=== PATIENT | female | born 1930 | race Two or more races ===

== ENCOUNTER 2016-04-28 11:01 | Inpatient (IN) | payer OTHER, MEDICAID ==
--- NOTE | 2016-04-28 15:18 | CPEKG ---
Heart Rate: 95 RR Interval: 632 QRSD Interval: 106 QT Interval: 388 QTC Interval: 488 QRS [place]: 13 T Wave [place]: 184 EKG Severity - ABNORMAL ECG - EKG Impression: ATRIAL FLUTTER, A-RATE 319 EKG Impression: LVH WITH SECONDARY REPOLARIZATION ABNORMALITY EKG Impression: BORDERLINE PROLONGED QT INTERVAL Electronically Signed By: Willie Baird 28-Apr-2016 17:41:20
[2016-04-28 15:26] LABS: % IMMATURE GRANULYOCYTES 0.2 % (0.0-1.1); ABSOLUTE IMMATURE GRANULOCYTES 0.01 10^3/uL (0.00-0.10); ADD DIFF? NO; ADD MORPH? NO; ADD SCAN? NO; ATYPICAL LYMPHOCYTE FLAG 10 (0-99); FRAGMENT RBC FLAG 0 (0-99); HEMATOCRIT 42.9 % (38.0-47.0); HEMOGLOBIN 14.7 g/dL (12.6-16.3); LEFT SHIFT FLG 0 (0-99); LIPEMIA HEMOLYSIS FLAG 90 (0-99); MEAN CELL HEMOGLOBIN 30.9 pg (27.9-34.1); MEAN CELL HEMOGLOBIN CONCENTR. 34.3 g/dL (32.4-36.7); MEAN CELL VOLUME 90.1 fL (81.5-99.8); MEAN PLATELET VOLUME 10.7 fL (8.7-11.7); PLATELET CLUMPS FLAG 0 (0-99); PLATELET COUNT 191 10^3/uL (150-400); RED BLOOD CELL COUNT 4.76 10^6/uL (4.18-5.33); RED CELL DISTRIBUTION WIDTH 12.5 % (11.5-15.2)
[2016-04-28 15:34] LABS: ANION GAP 10 mEq/L (8-16); CALCIUM 9.5 mg/dL (8.5-10.4); CARBON DIOXIDE 25 mEq/l (22-31); CHLORIDE 104 mEq/L (97-110); CREATININE 0.8 mg/dL (0.6-1.0); GLOMERULAR FILTRATION RATE > 60; GLUCOSE 122 mg/dL (70-100); POTASSIUM 4.4 mEq/L (3.5-5.2); SODIUM 139 mEq/L (134-144)
[2016-04-28 15:40] LABS: INR 1.28 (0.83-1.16)
[2016-04-28 15:41] LABS: APTT 29.2 SEC (23.0-38.0)
[2016-04-28] MEDS ORDERED: ACETAMINOPHEN 325 MG TAB PO PRN (16:05)
--- NOTE | 2016-04-28 16:10 | PDCARPN ---
Cardiology Progress Note Chief Complaint: palpitations Assessment/Plan: Assessment/Plan: The patient is a 85 y/o F with a history of PAF who presents today for Sotalol initiation. Her renal function is normal and therefore she will begin Sotalol 80mg BID. She will be monitored continuously on tele and with periodic EKG's. Continue Eliquis 2.5mg BID for anticoagulation. 04/28/16 16:07 Subjective: Pt is complaining of palpitations. Objective: Vital Signs (8 Hrs) Temp Pulse Resp BP Pulse Ox 04/28/16 14:20 36.6 C 95 15 154/100 H 93 Intake/Output (24 Hrs) 04/27/16 04/28/16 04/29/16 05:59 05:59 05:59 Other: Weight 56.88 kg Result Diagrams: 04/28/16 14:45 04/28/16 14:45 EKG: atrial flutter with variable rates - Physical Exam Constitutional: WDWN Cardiovascular: irregularly irregular Respiratory: clear to auscultate bilat, no crackles, no wheezes Skin: no edema ICD10 Worksheet Patient Problems: Problems Problem Status Diagnosed Atrial fibrillation Acute
[2016-04-28] MEDS: APIXABAN 2.5 MG TAB PO SCH (20:12)
[2016-04-28] MEDS: ATORVASTATIN CALCIUM 20 MG TAB PO SCH (20:12)
[2016-04-28] MEDS: SOTALOL HCL 80 MG TAB PO SCH (20:13)
[2016-04-28] MEDS ORDERED: DORZOLAMIDE/TIMOLOL 10 ML OPHT.BTL EACHEYE SCH (21:00)
[2016-04-28] MEDS: TIMOLOL 0.5% EACHEYE SCH (22:08)
[2016-04-28] MEDS: diphenhydrAMINE 25 MG CAP PO PRN (22:33)
[2016-04-29 05:11] LABS: INR 1.41 (0.83-1.16); PROTIME(PATIENT) 17.2 SEC (12.0-15.0)
[2016-04-29 05:14] LABS: ANION GAP 7 mEq/L (8-16); CARBON DIOXIDE 27 mEq/l (22-31); CHLORIDE 108 mEq/L (97-110); CREATININE 0.8 mg/dL (0.6-1.0); GLOMERULAR FILTRATION RATE > 60; GLUCOSE 84 mg/dL (70-100); POTASSIUM 4.6 mEq/L (3.5-5.2); SODIUM 142 mEq/L (134-144)
[2016-04-29] MEDS: LEVOTHYROXINE 100 MCG TAB PO SCH (05:31)
--- NOTE | 2016-04-29 08:13 | CPEKG ---
Heart Rate: 101 RR Interval: 594 QRSD Interval: 114 QT Interval: 396 QTC Interval: 514 QRS [place]: -1 T Wave [place]: 141 EKG Severity - ABNORMAL ECG - EKG Impression: Atrial tachycardia EKG Impression: NONSPECIFIC INTRAVENTRICULAR CONDUCTION DELAY EKG Impression: LVH WITH SECONDARY REPOLARIZATION ABNORMALITY Electronically Signed By: Alfred Barney 29-Apr-2016 11:19:39
--- NOTE | 2016-04-29 09:43 | CPEKG ---
Heart Rate: 81 RR Interval: 741 P-R Interval: 164 QRSD Interval: 110 QT Interval: 416 QTC Interval: 483 P [place]: 75 QRS [place]: 40 T Wave [place]: -72 EKG Severity - ABNORMAL ECG - EKG Impression: SINUS RHYTHM EKG Impression: LVH WITH IVCD AND SECONDARY REPOL ABNRM Electronically Signed By: Alfred Barney 29-Apr-2016 11:19:20
[2016-04-29] MEDS: LISINOPRIL 10 MG TAB PO SCH (10:22)
[2016-04-29] MEDS: SOTALOL HCL 80 MG TAB PO SCH ×2 (10:22→21:08)
[2016-04-29] MEDS: PRESERVISION AREDS 2 EYE VITAMIN 1 EACH PO SCH (10:22)
[2016-04-29] MEDS: ISOSORBIDE MONONITRATE 30 MG TAB.SR PO SCH (10:22)
[2016-04-29] MEDS: APIXABAN 2.5 MG TAB PO SCH ×2 (10:22→21:09)
[2016-04-29] MEDS: TIMOLOL 0.5% EACHEYE SCH ×2 (10:24→21:08)
--- NOTE | 2016-04-29 12:16 | PDCARPN ---
Cardiology Progress Note Chief Complaint: PAF Assessment/Plan: Assessment/Plan: The patient is a 85 y/o F with a history of PAF who presents today for Sotalol initiation. Her renal function is normal and therefore she will begin Sotalol 80mg BID. She will be monitored continuously on tele and with periodic EKG's. Continue Eliquis 2.5mg BID for anticoagulation. QTc is adequate at this time. Continue Sotalol. Anticipate d/c tomorrow afternoon. She converted to NSR with morning. 04/29/16 12:15 Subjective: Pt denies any palpitations. Objective: Vital Signs (8 Hrs) Temp Pulse Resp BP Pulse Ox 04/29/16 11:30 36.3 C 59 L 18 118/57 L 94 04/29/16 08:00 57 L 18 138/69 H 93 04/29/16 06:09 36.9 C 55 L 14 135/68 H 93 Intake/Output (24 Hrs) 04/28/16 04/29/16 04/30/16 05:59 05:59 05:59 Intake Total 600 Balance 600 Intake: Oral (ml) 600 Other: Weight 56.88 kg Intake Quantity Yes Sufficient Number of Voids Toilet 2 Result Diagrams: 04/28/16 14:45 04/29/16 04:40 EKG: NSR, [id number] - Physical Exam Constitutional: WDWN Cardiovascular: regular rate and rhythm, no rubs, no gallops Respiratory: clear to auscultate bilat, no crackles, no wheezes Skin: no edema Neurologic: AAOx3 ICD10 Worksheet Patient Problems: Problems Problem Status Diagnosed Atrial fibrillation Acute
--- NOTE | 2016-04-29 13:05 | CPEKG ---
Heart Rate: 55 RR Interval: 1091 P-R Interval: 152 QRSD Interval: 112 QT Interval: 512 QTC Interval: 490 P [place]: 67 QRS [place]: 10 T Wave [place]: 66 EKG Severity - ABNORMAL ECG - EKG Impression: SINUS RHYTHM EKG Impression: LVH WITH IVCD AND SECONDARY REPOL ABNRM Electronically Signed By: Willie Baird 29-Apr-2016 16:51:22
[2016-04-29] MEDS: ATORVASTATIN CALCIUM 20 MG TAB PO SCH (21:08)
[2016-04-29] MEDS: diphenhydrAMINE 25 MG CAP PO PRN (22:36)
--- NOTE | 2016-04-30 01:04 | CPEKG ---
Heart Rate: 53 RR Interval: 1132 P-R Interval: 128 QRSD Interval: 120 QT Interval: 528 QTC Interval: 496 P [place]: 33 QRS [place]: -2 T Wave [place]: 71 EKG Severity - ABNORMAL ECG - EKG Impression: SINUS RHYTHM EKG Impression: NONSPECIFIC INTRAVENTRICULAR CONDUCTION DELAY EKG Impression: LVH WITH SECONDARY REPOLARIZATION ABNORMALITY Electronically Signed By: Willie Baird 30-Apr-2016 17:01:51
[2016-04-30] MEDS: LEVOTHYROXINE 100 MCG TAB PO SCH (06:37)
[2016-04-30] MEDS: PRESERVISION AREDS 2 EYE VITAMIN 1 EACH PO SCH (09:47)
[2016-04-30] MEDS: ISOSORBIDE MONONITRATE 30 MG TAB.SR PO SCH (09:47)
[2016-04-30] MEDS: APIXABAN 2.5 MG TAB PO SCH ×2 (09:47→21:02)
[2016-04-30] MEDS: TIMOLOL 0.5% EACHEYE SCH ×2 (09:48→21:03)
[2016-04-30] MEDS: SOTALOL HCL 80 MG TAB PO SCH ×3 (10:08→21:02)
--- NOTE | 2016-04-30 10:15 | PDCARPN ---
Cardiology Progress Note Chief Complaint: Atrial fibrillation Assessment/Plan: Assessment/Plan: The patient is a 85 y/o F with a history of PAF who presents for Sotalol initiation. She was started on Sotalol 80mg BID but her QTc continued to slowly progress and is now 496. Her dose will be decreased to 40mg BID. Continue to monitor with routine EKG's and tele. Plan to d/c tomorrow after her morning dose. Continue Eliquis 2.5mg BID for anticoagulation. She is currently in NSR. She is hypertensive today but was well controlled yesterday. Continue to monitor. 04/30/16 10:16 Subjective: She denies any CP, SOB, or palpitations. She is concerned about her blood pressure increasing slowly. Objective: Vital Signs (8 Hrs) Temp Pulse Resp BP Pulse Ox 04/30/16 07:39 37.2 C 55 L 20 157/81 H 93 04/30/16 04:00 36.6 C 51 L 18 162/68 H 94 Intake/Output (24 Hrs) 04/29/16 04/30/16 05/01/16 05:59 05:59 05:59 Intake Total 600 1580 240 Output Total 2 Balance 600 1578 240 Intake: Oral (ml) 600 1580 240 Output: Urine (ml) 2 Toilet 2 Other: Weight 56.88 kg Intake Quantity Yes Yes Sufficient Number of Voids Toilet 2 2 Number of Stools Toilet 1 Result Diagrams: 04/28/16 14:45 04/29/16 04:40 EKG: QTc 496 Telemetry: NSR with SB - Physical Exam Constitutional: WDWN Cardiovascular: regular rate and rhythm, no murmurs, no rubs, no gallops Respiratory: clear to auscultate bilat, no crackles, no wheezes Skin: no edema Neurologic: AAOx3 ICD10 Worksheet Patient Problems: Problems Problem Status Diagnosed Atrial fibrillation Acute
[2016-04-30] MEDS: LISINOPRIL 10 MG TAB PO SCH (11:34)
--- NOTE | 2016-04-30 11:58 | CPEKG ---
Heart Rate: 56 RR Interval: 1071 P-R Interval: 132 QRSD Interval: 110 QT Interval: 504 QTC Interval: 487 P [place]: 36 QRS [place]: 4 T Wave [place]: 82 EKG Severity - ABNORMAL ECG - EKG Impression: SINUS RHYTHM EKG Impression: LVH WITH IVCD AND SECONDARY REPOL ABNRM Electronically Signed By: Willie Baird 30-Apr-2016 17:01:42
[2016-04-30] MEDS: ATORVASTATIN CALCIUM 20 MG TAB PO SCH (21:02)
--- NOTE | 2016-04-30 22:58 | CPEKG ---
Heart Rate: 57 RR Interval: 1053 P-R Interval: 132 QRSD Interval: 120 QT Interval: 516 QTC Interval: 503 P [place]: 55 QRS [place]: 9 T Wave [place]: 76 EKG Severity - ABNORMAL ECG - EKG Impression: SINUS RHYTHM EKG Impression: INCOMPLETE LEFT BUNDLE BRANCH BLOCK EKG Impression: PROBABLE LVH WITH SECONDARY REPOL ABNRM Electronically Signed By: Willie Baird 01-May-2016 17:40:18
[2016-05-01 07:58] VITALS: RESP 16
[2016-05-01] MEDS: ISOSORBIDE MONONITRATE 30 MG TAB.SR PO SCH (08:08)
[2016-05-01] MEDS: APIXABAN 2.5 MG TAB PO SCH (08:08)
[2016-05-01] MEDS: PRESERVISION AREDS 2 EYE VITAMIN 1 EACH PO SCH (08:08)
[2016-05-01] MEDS: LEVOTHYROXINE 100 MCG TAB PO SCH (08:08)
[2016-05-01] MEDS: TIMOLOL 0.5% EACHEYE SCH (08:09)
[2016-05-01] MEDS ORDERED: CARVEDILOL CR 40 MG CAP PO SCH (10:30)
[2016-05-01] MEDS: LISINOPRIL 10 MG TAB PO SCH (10:38)
[2016-05-01] MEDS ORDERED: CARVEDILOL CR 20 MG CAP PO SCH (11:00)
[2016-05-01 11:54] VITALS: BP 152/72; PULSE 54; TEMP 97.7; O2SAT 93
--- NOTE | 2016-05-01 14:49 | GDS ---
[f rep st] DISCHARGE SUMMARY PRIMARY HOCKEY SCOUT: Dr. Alfred Barney. DISCHARGE DIAGNOSES: 1. Paroxysmal atrial fibrillation, failed sotalol therapy. 2. Hypertension. HOSPITAL COURSE: For a detailed H and P, please see prior dictation. Briefly, Tanmay Lyon is an 85-year-old female with a history of paroxysmal atrial fibrillation requiring 2 cardioversions in the last 6 months. She called our office on April 28 complaining of palpitations with associated fu llness in her head and dizziness. The decision was made to direct admit her for sotalol loading. Martinez wu was initially started on 80 mg b.i.d., but her QTc slowly progressed. The day before discharge, he r sotalol was decreased to 40 mg twice a day, but unfortunately her QTc continued to be prolonged. I t was 503 the day of discharge. Ultimately, the decision was made to stop sotalol together. On admi ssi, she was in atrial fibrillation and converted to normal sinus rhythm within a few hours of rece iving her 1st dose of sotalol. She is very anxious about her heart and has noted some quivering with in the chest, which is short-lived. She has been monitored on telemetry and is currently in normal s inus rhythm. She was hypertensive during her hospitalization, with her blood pressure peaking at 185 /82. Her Coreg was resumed after sotalol was discontinued and her blood pressure improved. At the t cheikh of discharge, her blood pressure was down to 152/72 one hour after receiving Coreg CR. PHYSICAL EXAMINATION: GENERAL: Patient appears in no acute distress. VITAL SIGNS: Blood pressure 152/72, heart rate 54, oxygen saturation 93% on room air, afebrile. LUNGS: Clear to auscultation. No wheezes, rhonchi, or crackles auscultated. CARDIAC: Regular rate and rhythm without any signific ant murmurs, rubs, or gallops appreciated. DISCHARGE MEDICATIONS: Her medications are unchanged. She will continue Eliquis 2.5 mg b.i.d., Lipi tor 20 mg at bedtime, PreserVision 1 tab daily, Coreg CR 40 mg daily, Imdur 30 mg daily, levothyroxin e 100 mcg daily, lisinopril 10 mg daily, herbal supplement daily, Coreg 25 mg p.r.n. for palpitations , and Cosopt 1 drop to each eye b.i.d. PLAN: Tanmay is currently stable and ready for discharge home. She was hypertensive today, but her b lood pressure is trending down with resuming Coreg. Unfortunately, she failed sotalol therapy second ramez to a long QTc and bradycardia. She is also not a candidate for Tikosyn. She is scheduled to fol low up with Dr. Barney on May 07 at 2 p.m. to discuss further treatment options. She will likely need pacer placement followed by AV gianni ablation. Greater than 30 minutes was spent coordinating the patient's care today. /[id number]/MODL
== END 2016-05-01 15:50 | disposition home or self-care (01) | DRG 310 ==
LOC: F2W 13:54 → OBSVTOIN 04-29 12:13
PROVIDERS: ADMIT Internal Medicine Cardiovascular Disease; ATTEND Internal Medicine
DX: I48.0 Paroxysmal atrial fibrillation (principal); Z79.01 Long term (current) use of anticoagulants; I10 Essential (primary) hypertension
CPT/HCPCS: G0378; G0379

== ENCOUNTER → 2016-05-07 | Outpatient (CLI) | payer OTHER, MEDICAID | LOC: BHFA 14:00 | PROVIDERS: ATTEND Internal Medicine Cardiovascular Disease | DX: I48.0 Paroxysmal atrial fibrillation (principal) ==

== ENCOUNTER 2016-05-16 14:32 | Emergency (ER) | payer OTHER, MEDICAID ==
[2016-05-16 14:57] VITALS: TEMP 97.7
--- NOTE | 2016-05-16 15:43 | CPEKG ---
Heart Rate: 58 RR Interval: 1034 P-R Interval: 180 QRSD Interval: 144 QT Interval: 496 QTC Interval: 488 P [place]: 82 QRS [place]: -1 T Wave [place]: 73 EKG Severity - ABNORMAL ECG - EKG Impression: SINUS RHYTHM EKG Impression: LEFT BUNDLE BRANCH BLOCK EKG Impression: Similar to previous Electronically Signed By: Domingo Oscar 16-May-2016 16:24:47
[2016-05-16 15:48] VITALS: RESP 16
--- NOTE | 2016-05-16 16:49 | EDPHY ---
H & P Stated Complaint: BP elevated for 1-2 days;denies CP, h/a, or vertigo Time Seen by Provider: 05/16/16 16:21 HPI/ROS: CHIEF COMPLAINT: Hypertension HISTORY OF PRESENT ILLNESS: The patient is an 85-year-old female who comes to the emergency department complete turned about her hypertension for 220/100. She states that 3 days ago she noticed that her blood pressure was low 70/50. She spoke with Dr. Álvarez who is covering for Dr. Barney over the phone who suggested she decrease her Coreg from 40 CR mg a day to 25 mg a day and her lisinopril from 10 mg a day to 5 mg a day. Patient also takes Eliquis and Rythmol for atrial fibrillation. She did so and then today yesterday has had high blood pressure. She denies chest pain or shortness of breath. She denies headache confusion. She denies recent illness. no fevers. No urinary symptoms. No nausea vomiting. REVIEW OF SYSTEMS: Constitutional: denies: chills, fever, recent illness, recent injury EENTM: denies: blurred vision, double vision, nose congestion Respiratory: denies: cough, shortness of breath Cardiac: See HPI Gastrointestinal/Abdominal: denies: abdominal pain, diarrhea, nausea, vomiting, blood streaked stools Genitourinary: denies: dysuria, frequency, hematuria, pain Musculoskeletal: denies: joint pain, muscle pain Skin: denies: lesions, rash, jaundice, bruising Neurological: denies: headache, numbness, paresthesia, tingling, dizziness, weakness Hematologic/Lymphatic: denies: blood clots, easy bleeding, easy bruising Immunologic/allergic: denies: HIV/AIDS, transplant EXAM: GENERAL: Well-appearing, well-nourished and in no acute distress. HEAD: Atraumatic, normocephalic. EYES: Pupils equal round and reactive to light, extraocular movements intact, sclera anicteric, conjunctiva are normal. ENT: TMs normal, nares patent, oropharynx clear without exudates. Moist mucous membranes. NECK: Normal range of motion, supple without lymphadenopathy or JVD. LUNGS: Breath sounds clear to auscultation bilaterally and equal. No wheezes rales or rhonchi. HEART: Regular rate and rhythm without murmurs, rubs or gallops. ABDOMEN: Soft, nontender, normoactive bowel sounds. No guarding, no rebound. No masses appreciated. BACK: No CVA tenderness, no spinal tenderness, step-offs or deformities EXTREMITIES: Normal range of motion, no pitting or edema. No clubbing or cyanosis. NEUROLOGICAL: Cranial nerves II through XII grossly intact. Normal speech, normal gait. 5/5 strength, normal movement in all extremities, normal sensation PSYCH: Normal mood, normal affect. SKIN: Warm, dry, normal turgor, no visible rashes or lesions. Source: Patient Exam Limitations: No limitations - Personal History Current Tetanus Diphtheria and Acellular Pertussis (TDAP): Yes - Medical/Surgical History Hx Asthma: No Hx Chronic Respiratory Disease: No Hx Diabetes: No Hx Cardiac Disease: Yes Hx Renal Disease: No Hx Cirrhosis: No Hx Alcoholism: No Hx HIV/AIDS: No Hx Splenectomy or Spleen Trauma: No Other PMH: HTN. Mitral regurg. At tach, Macular degeneration, hysterectomy - Family History Significant Family History: No pertinent family hx - Social History Smoking Status: Never smoked Alcohol Use: Sober Drug Use: None Constitutional: Initial Vital Signs Temperature (C) 36.5 C 05/16/16 14:53 Heart Rate 58 L 05/16/16 14:53 Respiratory Rate 18 05/16/16 14:53 Blood Pressure 222/76 H 05/16/16 14:53 O2 Sat (%) 96 05/16/16 14:53 O2 Delivery Mode Room Air Allergies/Adverse Reactions: iodine [Iodine] Allergy (Intermediate, Verified 05/16/16 14:52) FAINTS over 40 years ago Home Medications: Medication Instructions Recorded Atorvastatin Calcium [Lipitor 20 20 mg PO HS 10/14/15 mg (*)] Carvedilol Phosphate [Coreg Cr] 40 mg PO DAILY 10/14/15 Isosorbide Mononitrate [Imdur 30 30 mg PO DAILY 10/14/15 mg (*)] Lisinopril [Zestril 10 mg (*)] 10 mg PO DAILY@11 10/14/15 Apixaban [Eliquis] 2.5 mg PO BID #60 tab 10/15/15 Carvedilol [Coreg (*)] 25 mg PO HS PRN 03/03/16 Dorzolamide/Timolol [Cosopt (*)] 1 drops EACHEYE BID 03/03/16 C/E/Zn/Cu/OM3/DHA/EPA/LUT/ZEAX 1 each PO DAILY 04/28/16 [Preservision Areds 2 Softgel] Herbals/Supplements -Info Only 1 ea PO DAILY 04/28/16 Levothyroxine [Synthroid 100 mcg 100 mcg PO DAILY06 04/28/16 (*)] Medical Decision Making - Diagnostics EKG Interpretation: An EKG obtained and was read and documented in trace view. Please see trace view for full reading and report. Left bundle branch block, unchanged from previous ED Course/Re-evaluation: A I recommended we returned the patient to her normal antihypertensive medications. I will consult [facility] to confirm. Her blood pressure is currently 197/85. 5:00 p.m. the patient's blood pressure is currently 165 systolic. She is asymptomatic. I discussed her case with Dr. Zhen Merlos who reviewed her records. He suggested she go back to her normal medication doses and follow up with him on Wednesday for re-evaluation. They may need to discontinue the lisinopril if she is again hypotensive. The patient and her daughter agree with this plan and declines further workup or testing. They are eager to go home. Differential Diagnosis: Partial list of the Differential diagnosis considered include but were not limited to; he hypertension, anxiety and although unlikely based on the history and physical exam, I also considered infection, hemorrhage, CVA. I discussed these differential diagnoses and the plan with the patient and her daughter as well as the usual and expected course. The patient understands that the diagnosis is provisional and that in medicine we are not always correct and that further workup is often warranted. Usual and customary warnings were given. All of the patient's questions were answered. The patient was instructed to return to the emergency department should the symptoms at all worsen or return, otherwise to followup with the physician as we discussed. Departure - Departure Disposition: Home, Routine, Self-Care Clinical Impression: Hypertension Qualifiers: Hypertension type: essential hypertension Qualifier Code: (I10) Essential ( primary) hypertension Condition: Fair Instructions: Hypertension (ED) Additional Instructions: Resume your normal blood pressure medication regimen, including Coreg 40 mg CR daily and 25 mg as needed for atrial fibrillation, and Lisinopril 10 mg per day. Follow up with your channel specialist on Wednesday or Wednesday. Referrals: Romelia Rodriguez MD [Primary Care Provider] - As per Instructions Kelley Álvarez MD [Medical Doctor] - As per Instructions
[2016-05-16 16:54] VITALS: BP 197/85; PULSE 98; O2SAT 98
== END 2016-05-16 17:48 | disposition home or self-care (01) ==
DX: I10 Essential (primary) hypertension (principal)